=== PATIENT | male | born 2000 | race African-American/Black ===

== ENCOUNTER 2024-02-08 20:31 | Emergency (ER) | payer SELFPAY ==
[2024-02-08] MEDS ORDERED: Ketorolac Tromethamine 30 MG (1 mL) VIAL ONE (22:52)
== END 2024-02-08 23:14 | disposition home or self-care (01) ==
LOC: ERS 20:31
DX: K04.7 Periapical abscess without sinus (principal)
CPT/HCPCS: 96372; J1885

== ENCOUNTER 2024-08-25 05:29 | Observation (INO) | payer SELFPAY ==
[2024-08-25 05:48] LABS: #Basophils Less than 0.03 10x3/uL (0.0-0.2); #Eosinophils Less than 0.03 10x3/uL (0.0-0.7); %Basophils 0.1 % (0.0-1.0); %Eosinophils 0.1 % (0.0-10.0); %Lymphocytes 7.9 % (21.0-51.0); %Monocytes 6.6 % (0.0-10.0); %Neutrophils 84.7 % (42.0-75.0); Hematocrit 40.9 % (42.0-52.0); Hemoglobin 13.8 g/dL (14.0-18.0); Mean Corpuscular HGB CONC 33.7 g/dL (32.0-36.0); Mean Corpuscular Hemoglobin 30.1 pg (27.0-31.0); Mean Corpuscular Volume 89.3 fL (78.0-98.0); Mean Platelet Volume 9.7 fL (7.4-10.4); Platelet Count 308 10x3/uL (130-400); RBC Distribution Width 11.9 % (11.5-14.5); Red Blood Cell (RBC) Count 4.58 mill/uL (4.70-6.10)
[2024-08-25 06:03] LABS: PTT 25.2 sec (22.9-36.1); Prothrombin Time 12.9 sec (12.0-14.7)
[2024-08-25 06:07] LABS: ALT (SGPT) 22 U/L (8-55); AST (SGOT) 17 U/L (5-34); Albumin 4.2 g/dL (3.5-5.0); Alkaline Phosphatase 67 U/L (40-110); Anion Gap 12 mmol/L (10-20); BUN (Urea Nitrogen) 8 mg/dL (8.9-20.6); Bilirubin, Total 0.5 mg/dL (0.2-1.2); Calc. Creatinine Clearance 0 mL/min (70-130); Calcium 9.4 mg/dL (7.8-10.44); Carbon Dioxide 25 mmol/L (22-29); Chloride 108 mmol/L (98-107); Estimated GFR 107; Globulin 3.6 g/dL (2.4-3.5); Glucose 123 mg/dL (70-105); Potassium 4.5 mmol/L (3.5-5.1); Protein, Total 7.8 g/dL (6.0-8.3); Sodium 140 mmol/L (136-145)
[2024-08-25] MEDS ORDERED: Morphine 4 MG/ML VIAL ONE ×2 (06:54→08:40)
[2024-08-25] MEDS ORDERED: Ondansetron ODT 4 MG TAB PO PRN (07:12)
[2024-08-25] MEDS ORDERED: hydrALAZINE 20 MG/ML VIAL SLOW IVP PRN (07:12)
[2024-08-25] MEDS ORDERED: Glucagon 1 MG/ML KIT IM PRN (07:12)
[2024-08-25] MEDS ORDERED: Dextrose 50% Abboject 50 ML SYRINGE SLOW IVP PRN (07:12)
[2024-08-25] MEDS ORDERED: Acetaminophen 325 MG TAB PO PRN (07:12)
[2024-08-25] MEDS ORDERED: Dextrose 5% in Water 1,000 ML IV PRN (07:12)
[2024-08-25] MEDS ORDERED: Iopamidol-370 76% 500 ML MDV (1 ML CHARGE) ONE ×2 (09:58)
[2024-08-25] MEDS: HYDROcodone/Acetaminophen 5/325 mg Tablet PO PRN (10:58)
[2024-08-25] MEDS: Methocarbamol 500 MG TAB PO PRN (10:58)
[2024-08-25 11:01] VITALS: BMI 31.5
[2024-08-25] MEDS: Ondansetron PF 4 MG/2 ML Vial IVP PRN (12:52)
[2024-08-25] MEDS: CEFAZOLIN 2 GM in Sodium Chloride 0.9% 100 ML IVPB SCH (14:11)
[2024-08-25] MEDS: TETANUS, DIPHTHERIA TOX,ADULT (TDVAX) 0.5 ML VIAL IM ONE (19:36)
[2024-08-26] MEDS: traMADol HCl 50 MG TAB PO PRN (04:36)
[2024-08-26 05:22] LABS: #Basophils Less than 0.03 10x3/uL (0.0-0.2); #Eosinophils Less than 0.03 10x3/uL (0.0-0.7); %Basophils 0.2 % (0.0-1.0); %Eosinophils 0.1 % (0.0-10.0); %Lymphocytes 15.6 % (21.0-51.0); %Monocytes 13.9 % (0.0-10.0); %Neutrophils 69.6 % (42.0-75.0); Hematocrit 35.9 % (42.0-52.0); Hemoglobin 12.2 g/dL (14.0-18.0); Mean Corpuscular Hemoglobin 30.3 pg (27.0-31.0); Mean Corpuscular Volume 89.3 fL (78.0-98.0); Mean Platelet Volume 9.6 fL (7.4-10.4); Platelet Count 242 10x3/uL (130-400); RBC Distribution Width 11.9 % (11.5-14.5); Red Blood Cell (RBC) Count 4.02 mill/uL (4.70-6.10)
[2024-08-26 05:47] LABS: Anion Gap 11 mmol/L (10-20); BUN (Urea Nitrogen) 6 mg/dL (8.9-20.6); Calc. Creatinine Clearance 201 mL/min (70-130); Calcium 9.3 mg/dL (7.8-10.44); Carbon Dioxide 26 mmol/L (22-29); Chloride 106 mmol/L (98-107); Estimated GFR 127; Glucose 99 mg/dL (70-105); Potassium 3.9 mmol/L (3.5-5.1); Sodium 139 mmol/L (136-145)
[2024-08-26 11:48] VITALS: BP 164/90; TEMP 98
== END 2024-08-26 13:59 | disposition home or self-care (01) ==
LOC: ERS 05:29 → EEVIPCON 05:29 → SURG A 09:09
PROVIDERS: ADMIT Surgery; ATTEND Surgery
DX: S72.415A Nondisplaced unspecified condyle fracture of lower end of left femur, initial encounter for closed fracture (principal); Z79.2 Long term (current) use of antibiotics; W34.00XA Accidental discharge from unspecified firearms or gun, initial encounter
CPT/HCPCS: 36415; 80048; 85025; 85610; 85730; 86850; 86900; 86901; 96374; 96375; 96376; G0378; G0390; J2270; J2405; Q9967